=== PATIENT | female | born 1975 | race Caucasian/White ===

== ENCOUNTER 2024-06-19 18:28 | Emergency (ER) | payer OTHER, SELFPAY ==
[2024-06-19 18:37] VITALS: BP 193/93
[2024-06-19 19:14] LABS: % Basophils 0.4 % (0-2); % Eosinophils 3.8 % (0-6); % Immature Granulocytes 0.3 % (0-0.5); % Lymphocytes 31.3 % (20.5-51.1); % Monocytes 7.6 % (1.7-9.3); % Neutrophils 56.6 % (42.2-75.2); Absolute Eosinophils 0.4 10^3/uL (0-0.7); Absolute Lymphocytes 2.9 10^3/uL (1.2-3.4); Absolute Monocytes 0.7 10^3/uL (0.1-0.6); Absolute Neutrophils 5.3 10^3/uL (1.4-6.5); Hemoglobin 13.4 g/dL (12.0-16.0); Mean Corp Hgb Conc. 34.4 g/dL (33.0-37.0); Mean Corpuscular Hgb 30.2 pg (27.0-31.0); Mean Platelet Volume 9.5 fL (7.4-10.4); Nucleated Red Blood Cells % 0 %; Platelet Count 304 10^3/uL (130-400); Red Blood Cell Count 4.43 10^6/uL (4.20-5.40); Red Cell Dist. Width 13.3 % (11.5-14.5); White Blood Cell Count 9.3 10^3/uL (4.8-10.8)
[2024-06-19 19:29] LABS: HCG, Serum Qualitative Screen Negative
[2024-06-19 19:34] LABS: ALT (SGPT) 28 U/L (0-35); AST (SGOT) 22 U/L (14-36); Albumin 4.5 g/dl (3.5-5.0); Alkaline Phosphatase 63 U/L (38-126); Blood Urea Nitrogen 16 mg/dl (7-17); Calcium 9.2 mg/dl (8.4-10.2); Carbon Dioxide 24 mmol/L (22-30); Chloride 103 mmol/L (98-107); Glucose 105 mg/dl (70-99); Potassium 4.2 mmol/L (3.5-5.1); Sodium 136 mmol/L (135-145); Total Bilirubin 0.4 mg/dl (0.2-1.3); Total Protein 7.1 g/dl (6.3-8.2); eGFR > 60.00
--- NOTE | 2024-06-19 22:33 | ED.GENMED ---
History of Present Illness
General
Chief Complaint: Vaginal Bleeding
Source: patient
Exam Limitations: none
Time Seen by Provider: 06/19/24 21:39
History of Present Illness
History of Present Illness:
49-year-old female presents with vaginal bleeding. The patient states that her bleeding started about 24 hours ago. She states she has been getting light menstrual periods since stopping Mirena 4 months ago. She states this is just a lot heavier.
She states she soaked through her pants. Denies chest pain or shortness of breath. No lightheadedness. No syncope. Is not anticoagulated. Does admit to abdominal cramping related to her menstruation. Denies any trauma or pain to the perineum.
Past History
Past History
ED Past Medical History: Other (Asthma, irritable bowel syndrome, bipolar disorder)
ED Past Surgical History: Gynecological
Phy Exam
Physical Exam
Physical Exam:
CONSTITUTIONAL Patient alert and oriented to person, place and time. Well-appearing. Vital signs reviewed.
HEAD atraumatic, normocephalic.
EYES eyelids normal to inspection, Extraocular muscles intact, Conjunctiva normal, Sclera normal.
NECK normal range of motion, Trachea midline, no jugular venous distention.
RESPIRATORY CHEST No respiratory distress noted, Chest expansion equal
ABDOMEN mild diffuse lower abdominal tenderness, Bowel sounds normal. No distention.
BACK normal inspection, no obvious deformities
UPPER EXTREMITY range of motion normal, Motor strength normal, no cyanosis, no edema.
LOWER EXTREMITY range of motion normal, Motor strength normal, no cyanosis, no edema.
NEURO Speech normal, No focal motor deficits, [place] coma scale 15, Memory normal, Cranial Nerves intact to screening exam.
SKIN skin warm, dry, and normal in color.
Course
Orders/Labs/Results
Orders:
Orders
06/19/24 18:45
EKG [Electrocardiogram (*1)] Urgent
Reason for Study: Other
Other Reason for Exam: bleeding
EKG- Treatment ONCE
Test Result ONCE
06/19/24 19:00
Type+Screen Urgent
CMP [Comprehensive Metabolic Panel] Urgent
Complete Blood Count/With Diff Urgent
HCG, Serum Qualitative Screen Urgent
Comment: Notify provider if positive test present
06/19/24 19:12
ABO2 Urgent
BBK Wristband Number:
Associate notified that ABO2 has been ordered: [id number]
Date: 06/19/24
Time: 19:13
Photograph Tinter ID: [id number]
Abnormal Lab Results
06/19/24
19:00
Absolute Monos (auto) 0.7 H 10^3/uL
(0.1-0.6)
Creatinine 0.5 L mg/dL
(0.6-1.0)
Glucose 105 H mg/dl
(70-99)
06/19/24 19:00
06/19/24 19:00
Vital Signs
Initial and Last Documented VS:
Initial Vital Signs
Temp Pulse Resp BP Pulse Ox
98.2 F 81 16 193/93 99
06/19/24 18:37 06/19/24 18:37 06/19/24 18:37 06/19/24 18:37 06/19/24 18:37
Last Documented Vital Signs
Temp Pulse Resp BP Pulse Ox
98.2 F 72 18 132/88 96
06/19/24 18:37 06/19/24 22:40 06/19/24 22:40 06/19/24 22:40 06/19/24 22:40
MDM/Problems Addressed
MDM/Problems Addressed:
Dysfunctional uterine bleeding
*Pulse Oximetry
Patient hypoxic: no
*Critical Care Note
Total Time (30-74mins, 75-104mins- exclusive of procedures): Not Applicable
Data Reviewed
Source: patient
Further Testing Considered But Not Given:
Considered ultrasound but not .
Patient Management
Escalation/DeEscalation of care consider admission/obs:
Non uterine bleeding. Will provide Aygestin but advised her to hold off for 36 hours see if her bleeding subsides. She agrees and will follow-up with gynecology
ED Attending Note
-
Portions of this chart may have been created with voice recognition software.� Occasional wrong word or��sound alike� substitutions may have occurred due to the inherent limitations of voice recognition software.
Discharge Plan
Departure
Patient Disposition: Home (Routine Discharge)
Date of Disposition: 06/19/24
Time of Disposition: 22:35
Patient with high blood pressure during this ER visit?: Yes
Discharge Problem:
DUB (dysfunctional uterine bleeding)
Instructions: Heavy Periods (DC), BLOOD PRESSURE
Prescriptions:
New
norethindrone acetate 5 mg tablet
5 mg PO BID Qty: 28 0RF
Referrals:
Naveen Baer DO [Family Provider] -
Activity Restrictions/Additional Instructions:
Please see your client resource specialist in the next 3 days for follow-up and reevaluation. Return to the ED for lightheadedness, shortness of breath, increased bleeding or any other concerns.
If symptoms persist over the next 36 hours, please start medication as prescribed
Your blood pressure was elevated while in the Emergency Department, please have your doctor re-evaluate it in the next 48 hours as untreated hypertension may lead to serious complications.
Interventions
Interventions:
*Risk Screen - Suicide Last Done: 06/19/24 18:37
*General Assessment Last Done: 06/19/24 21:36
*Neglect/Abuse Screening Last Done: 06/19/24 18:37
*ED COVID-19 Vaccine History Last Done: 06/19/24 21:36
ED-Female Genitourinary Assessment Last Done: 06/19/24 21:35
Discharge Date and Time
Print Language: PASHTO
[2024-06-19 22:40] VITALS: BP 132/88
== END 2024-06-19 22:53 | disposition home or self-care (01) ==
LOC: EMR 18:28
PROVIDERS: Emergency Medicine; EMERGENCY PHYSICIAN Emergency Medicine
DX: N93.8 Other specified abnormal uterine and vaginal bleeding (principal); J45.909 Unspecified asthma, uncomplicated
CPT/HCPCS: 99284; 80053; 84703; 85025; 86850; 86900; 86901; 93005